=== PATIENT | female | born 1990 | race Caucasian/White ===

== ENCOUNTER 2017-04-05 07:00 | Inpatient (IN) | payer OTHER ==
[2017-04-05] MEDS ORDERED: BUTORPHANOL TARTRATE 1 MG/ML VIAL IVPUSH ONE (07:53)
[2017-04-05] MEDS ORDERED: PROMETHAZINE HCL 25 MG/1 ML VIAL IVPUSH ONE (07:53)
--- NOTE | 2017-04-05 07:53 | HP ---
Past Medical History - Primary Care Physician PCP:: Mayito Zamorano - Admission Chief Complaint: contarction, bloody show History of Present Illness: 28 yo f 39 weeks , c/o contraction since 4 30 am today, no rom, no fever, cx 4 cm 80 vx -2 mi, fhr cat 1, contraction regular, History Source: Patient Limitations to Obtaining History: No Limitations - Past Medical History ...: 2 ...Para: 1 ...Term: 1 ...: 0 Additional OB History: one no complication - Past Surgical History Hx Myomectomy: No Hx Transabdominal Cerclage: No - Social History Usual Living Arrangement: Yes: With Spouse History of Recent Travel: No Review of Systems - Review of Systems Constitutional: reports: No Symptoms Eyes: reports: No Symptoms HENT: reports: No Symptoms Neck: reports: No Symptoms Cardiovascular: reports: No Symptoms Respiratory: reports: No Symptoms Gastrointestinal: reports: No Symptoms Genitourinary: reports: No Symptoms Breasts: reports: No Symptoms Reported Musculoskeletal: reports: No Symptoms Integumentary: reports: No Symptoms Neurological: reports: No Symptoms Endocrine: reports: No Symptoms Hematology/Lymphatic: reports: No Symptoms Psychiatric: reports: No Symptoms Physical Exam - Maternity Constitutional: Yes: Well Nourished, No Distress, Calm Eyes: Yes: WNL, Conjunctiva Clear, EOM Intact HENT: Yes: WNL, Atraumatic, Normocephalic Neck: Yes: WNL, Supple, Trachea Midline Cardiovascular: Yes: WNL, Regular Rate and Rhythm Breast(s): Yes: WNL - Abdominal Exam/OB Fundal Height: 40 Number of Fetuses: Single Presentation: Vertex Regularity: Regular Intensity: Mod/Strong Monitor Mode: External Heart Rate Location: [facility] Category: I Accelerations: Uniform Decelerations: None - Vaginal Exam/OB Vaginal Bleediing: Bloody Show Dilatation (cm): 4 cm Effacement (%): 80 Amniotic Membrane Status: Intact Presentation: Vertex/Position Station: -2 - Physical Exam Extremities: Yes: WNL Edema: Yes Edema: LLE: Trace, RLE: Trace Deep Tendon Reflex Grade: Normal +2 Psychiatric: Yes: WNL Hemorrhage Risk Assessment - Risk Factors Risk Score: 0 Risk Level: Low Risk Problem List - Problems (1) with 39 completed weeks gestation Code(s): Z3A.39 - 39 WEEKS GESTATION OF (2) Second stage of labor not established Code(s): QIR5407 - Assessment/Plan admit, heart monitoring, for vaginal delivery. pain management
[2017-04-05] MEDS ORDERED: DEXTROSE 5%-LACTATED RINGERS 1,000 ML IV SCH (08:00)
[2017-04-05 08:40] VITALS: BMI 26.0
[2017-04-05 09:26] LABS: INR 0.89 (0.82-1.09); PROTHROMBIN TIME (PATIENT) 9.8 SEC (9.98-11.88)
[2017-04-05 09:29] LABS: ACTIVATED PTT 26.7 SECONDS (26.9-34.4)
[2017-04-05 09:31] LABS: BASOPHIL 0.1 % (0-2.0); EOSINOPHIL 0.1 % (0-4.5); MCH 28.6 pg (25.7-33.7); MCHC 32.7 g/dl (32.0-36.0); MEAN CELL VOLUME 87.6 fl (80-96); MEAN PLT VOLUME 9.1 fl (7.5-11.1); NEUTROPHILS 87.2 % (42.8-82.8); PLATELET COUNT 223 K/MM3 (134-434); RDW 19.8 % (11.6-15.6); WHITE BLOOD COUNT 14.4 K/mm3 (4.0-10.0)
[2017-04-05 09:59] LABS: ANION GAP 9 (8-16); CALCIUM 9.1 mg/dL (8.5-10.1); CO2 23 mmol/L (21-32); CREATININE 0.5 mg/dL (0.55-1.02); GLUCOSE,RANDOM 70 mg/dL (74-106)
[2017-04-05] MEDS ORDERED: FENTANYL/BUPIVACAINE/NS/PF - PCEA - 50 ML DISP.SYRIN EP SCH (11:45)
[2017-04-05] MEDS ORDERED: OXYTOCIN 15 UNITS/ LR 250 ML 250 ML IVPB SCH ×2 (12:00→12:15)
[2017-04-05] MEDS ORDERED: ELECTROLYTE-148 SOLN 1,000 ML IV SCH (12:00)
[2017-04-05] MEDS ORDERED: BENZOCAINE 20% 57 GM BOTTLE TP PRN (14:02)
[2017-04-05] MEDS ORDERED: BISACODYL 10 MG SUPP.RECT RC PRN (14:02)
[2017-04-05] MEDS ORDERED: METHYLERGONOVINE MALEATE 0.2 MG/1 ML AMP IM PRN (14:02)
[2017-04-05] MEDS ORDERED: WITCH HAZEL 50% (TUCKS) 40 PAD/JAR PAD TP PRN (14:02)
[2017-04-05] MEDS ORDERED: BENZOCAINE 28 GM HEMORRHOIDAL OINTMENT TP PRN (14:02)
[2017-04-05] MEDS ORDERED: D5W-LR W/ 20 UNITS OXYTOCIN 1,000 ML IV SCH (14:15)
[2017-04-05] MEDS: FERROUS SO4 325 MG TABLET (FP) PO SCH (18:49)
[2017-04-05] MEDS: IBUPROFEN 600 MG TABLET (FP) PO PRN (21:30)
[2017-04-05] MEDS: ACETAMINOPHEN 325 MG TABLET (FP) PO PRN (21:31)
[2017-04-06 08:03] LABS: BASOPHIL 0.2 % (0-2.0); EOSINOPHIL 0.3 % (0-4.5); MCH 29.2 pg (25.7-33.7); MCHC 33.2 g/dl (32.0-36.0); MEAN CELL VOLUME 87.9 fl (80-96); MEAN PLT VOLUME 8.6 fl (7.5-11.1); PLATELET COUNT 185 K/MM3 (134-434); RDW 19.9 % (11.6-15.6); WHITE BLOOD COUNT 12.1 K/mm3 (4.0-10.0)
[2017-04-06] MEDS: PRENATAL VITAMINS W/ FOLIC ACID TABLET (FP) PO SCH (10:07)
[2017-04-06] MEDS: FERROUS SO4 325 MG TABLET (FP) PO SCH ×2 (10:07→17:52)
[2017-04-06] MEDS: ACETAMINOPHEN 325 MG TABLET (FP) PO PRN (10:07)
[2017-04-06] MEDS: IBUPROFEN 600 MG TABLET (FP) PO PRN (10:08)
--- NOTE | 2017-04-06 11:19 | PN ---
Post Progress Note Type of Delivery: Vital Signs: Vital Signs Temperature 98 F 04/06/17 06:00 Pulse Rate 76 04/06/17 06:00 Respiratory Rate 18 04/06/17 06:00 Blood Pressure 116/72 04/06/17 06:00 O2 Sat by Pulse Oximetry (%) 100 04/05/17 13:30 Breast Exam: Yes: Soft Uterus: Yes: Fundus Firm Abdomen/GI: Yes: Abdomen soft Lochia: Yes: Rubra Lochia, amount: Small Perineum: Yes: Intact Activity: Ambulating - Labs Labs: CBC WBC 12.1 K/mm3 (4.0-10.0) H 04/06/17 07:25 RBC 4.48 M/mm3 (3.60-5.2) 04/06/17 07:25 Hgb 13.1 GM/dL (10.7-15.3) 04/06/17 07:25 Hct 39.4 % (32.4-45.2) 04/06/17 07:25 MCV 87.9 fl (80-96) 04/06/17 07:25 MCH 29.2 pg (25.7-33.7) 04/06/17 07:25 MCHC 33.2 g/dl (32.0-36.0) 04/06/17 07:25 RDW 19.9 % (11.6-15.6) H 04/06/17 07:25 Plt Count 185 K/MM3 (134-434) 04/06/17 07:25 MPV 8.6 fl (7.5-11.1) 04/06/17 07:25 Neutrophils % 84.0 % (42.8-82.8) H 04/06/17 07:25 Lymphocytes % 11.9 % (8-40) D 04/06/17 07:25 Monocytes % 3.6 % (3.8-10.2) L 04/06/17 07:25 Eosinophils % 0.3 % (0-4.5) D 04/06/17 07:25 Basophils % 0.2 % (0-2.0) 04/06/17 07:25 Assessment/Plan as above oob reg diet
[2017-04-06] MEDS ORDERED: DIPHTH,PERTUSS(ACELL),TET 0.5 ML DISP.SYRIN IM ONE (14:00)
[2017-04-06] MEDS ORDERED: SENNOSIDES/DOCUSATE COMBO (SENNA PLUS) TABLET (UD) PO PRN (22:00)
[2017-04-07] MEDS: ACETAMINOPHEN 325 MG TABLET (FP) PO PRN ×2 (01:10→09:51)
[2017-04-07] MEDS: IBUPROFEN 600 MG TABLET (FP) PO PRN ×2 (01:10→09:52)
[2017-04-07] MEDS: PRENATAL VITAMINS W/ FOLIC ACID TABLET (FP) PO SCH (09:51)
[2017-04-07] MEDS: FERROUS SO4 325 MG TABLET (FP) PO SCH (09:51)
[2017-04-07 13:04] VITALS: BP 131/71; PULSE 73; TEMP 98.1
--- NOTE | 2017-04-08 17:21 | DS ---
Physical Exam-PLUMBER Vital Signs: Vital Signs Temperature 98.1 F 04/07/17 09:00 Pulse Rate 73 04/07/17 09:00 Respiratory Rate 20 04/07/17 09:00 Blood Pressure 131/71 04/07/17 09:00 O2 Sat by Pulse Oximetry (%) 100 04/05/17 13:30 Constitutional: Yes: Well Nourished, No Distress, Calm Eyes: Yes: WNL, Conjunctiva Clear, EOM Intact HENT: Yes: WNL, Atraumatic, Normocephalic Neck: Yes: WNL, Supple, Trachea Midline Cardiovascular: Yes: WNL, Regular Rate and Rhythm Respiratory: Yes: WNL, Regular, CTA Bilaterally Gastrointestinal: Yes: WNL ...Rectal Exam: Yes: WNL Renal/: Yes: WNL ....Post : Yes: Uterus firm, Uterus non-tender, Slight lochia rubra Breast(s): Yes: WNL Musculoskeletal: Yes: WNL Extremities: Yes: WNL Edema: Yes Edema: LLE: Trace, RLE: Trace Integumentary: Yes: WNL Neurological: Yes: WNL, Alert, Oriented ...Motor Strength: WNL Psychiatric: Yes: WNL, Alert, Oriented Labs: CBC, BMP 04/06/17 07:25 04/05/17 08:25 Delivery - Delivery Vaginal Delivery: Spontaneous (no complication) Type of Anesthesia: Epidural Episiotomy/Laceration: None EBL (cc): 300 Delivery, Single - Stages of Labor Date 1st Stage Initiatied: 04/05/17 Time 1st Stage Initiated: 04:30 Date 2nd Stage Initiated: 04/05/17 Time 2nd Stage Initiated: 13:30 Date of Delivery: 04/05/17 Time of Delivery: 13:50 Time Placenta Delivered: 13:55 Placenta: Yes: Spontaneous (no complication) - Condition of Infant Stamping Die Maker Bench/Telesales Representative Present: No Infant Gender: Female Weight: 6 lb 11 oz Position: Left, OA Total Hours ROM (Hrs/Mins): 22 min. - 1 Minute Total Score: 9 5 Minutes Total Score: 9 - Feeding Plan Initial Plan: Elected not to breastfeed exclusively throughout hospitalization Discharge Summary Reason For Visit: LABOR Procedures: Principal: Condition: Good - Instructions Diet, Activity, Other Instructions: PT INSTRUCTED TO CALL CLINIC FOR 6 WEEK FOLLOW UP APPOINTMENT. Referrals: Mayito Zamorano MD [Staff Physician] - Disposition: HOME - Home Medications Comprehensive Discharge Medication List: Ambulatory Orders Vitamins (Sjr) - 1 tab PO DAILY 04/05/17
== END 2017-04-07 12:00 | disposition home or self-care (01) | DRG 560 ==
LOC: JLDR 07:00 → J3W 16:40
PROVIDERS: ADMIT Obstetrics & Gynecology; ATTEND Obstetrics & Gynecology
PROC: 10E0XZZ Delivery of Products of Conception, External Approach (ICD-10-PCS; principal; 2017-04-05)
DX: O80 Encounter for full-term uncomplicated delivery (principal); Z3A.39 39 weeks gestation of pregnancy; Z37.0 Single live birth
CPT/HCPCS: 36415; 59409; 80048; 85025; 85610; 85730; 86593; 86850; 86900; 86901; 90715